=== PATIENT | male | born 1945 | race Caucasian/White ===

== ENCOUNTER 2017-10-28 14:44 | Emergency (ER) | payer MEDICARE ==
[~2017-10-28] VITALS: Ht 172.7 cm; Wt 125.9 kg
[2017-10-28 14:52] VITALS: TEMP 97.2
[2017-10-28] MEDS ORDERED: NOVOLIN R100 U/ML SQ ×2 (15:10→15:11)
[2017-10-28] MEDS ORDERED: K-DUR20 MEQ PO (15:11)
[2017-10-28] MEDS ORDERED: COREG 3.123.125 MG/T PO (15:12)
[2017-10-28] MEDS ORDERED: COZAAR 25MG25 MG/TAB PO (15:12)
[2017-10-28] MEDS ORDERED: BUMEX 1MG TA1 MG/TA1 PO (15:12)
[2017-10-28] MEDS ORDERED: ZOCOR 20MG20 MG PO (15:13)
[2017-10-28] MEDS ORDERED: VENTOLIN0.09 MG INH (15:13)
[2017-10-28] MEDS ORDERED: NOVOLIN N100 U/ML SQ (15:14)
[2017-10-28] MEDS ORDERED: PROZAC40 MG PO (15:14)
[2017-10-28] MEDS ORDERED: VITAMIN D 50,1.25 MG PO (15:14)
[2017-10-28] MEDS ORDERED: ZYLOPRIM 100MG100 MG PO (15:15)
[2017-10-28 15:39] LABS: BASO % 0.2 % (0.0-2.0); EOS # 0.1 (0.0-0.7); EOS % 0.9 % (0-4.0); GRAN # 8.7 (1.4-6.5); GRAN % 78.5 % (42.2-75.2); LYMPH # 1.3 (1.2-3.4); LYMPH % 11.5 % (20.0-51.0); MEAN CELL VOLUME 94 fl (80.0-100.0); MEAN CORPUSCULAR HGB CONC 33 g/dl (33.0-37.0); MEAN PLATELET VOLUME 9.3 fl (7.4-10.4); MONO # 0.9 (0.1-0.6); MONO % 8.1 % (1.7-9.3); PLATELET COUNT 192 K/mm3 (130-400); REDCELL DISTRIBUTION WIDTH-CV 14.8 % (11.5-14.5)
[2017-10-28 15:41] LABS: HEMOGLOBIN 10.8 g/dl (13.5-18.0); MEAN CORPUSCULAR HEMOGLOBIN 31 pg (27.0-31.0); PROTHROMBIN TIME 11.7 SECONDS (9.7-12.8)
[2017-10-28 15:44] LABS: PARTIAL THROMBOPLASTIN TIME 24.7 SECONDS (26.0-37.0)
[2017-10-28 15:48] LABS: ALBUMIN 3.8 gm/dL (3.5-5.0); BILIRUBIN,TOTAL 0.2 mg/dL (0.0-1.0); CALCIUM 8.7 mg/dL (8.4-10.2); CREATININE, serum 3.07 mg/dL (0.66-1.25); POTASSIUM 5.1 mmol/L (3.4-5.0); TOTAL PROTEIN 6.4 gm/dL (6.4-8.2)
[2017-10-28 17:46] VITALS: BP 146/65; PULSE 60
== END 2017-10-28 18:38 | disposition short-term general hospital (02) ==
LOC: COL.ER 14:44
PROVIDERS: Emergency Medicine
DX: S22.42XA Multiple fractures of ribs, left side, initial encounter for closed fracture (principal); S27.2XXA Traumatic hemopneumothorax, initial encounter; I25.10 Atherosclerotic heart disease of native coronary artery without angina pectoris; I10 Essential (primary) hypertension; J44.9 Chronic obstructive pulmonary disease, unspecified; E78.5 Hyperlipidemia, unspecified; W00.0XXA Fall on same level due to ice and snow, initial encounter; Y92.009 Unspecified place in unspecified non-institutional (private) residence as the place of occurrence of the external cause
CPT/HCPCS: J2270; J2405